=== PATIENT | male | born 1950 | race Caucasian/White ===

== ENCOUNTER 2019-09-14 05:46 | Day surgery (SDC) | payer MEDICARE ==
[~2019-09-14] VITALS: Ht 167.6 cm; Wt 83.1 kg
[~2019-09-14 05:46] MED LIST: ALLERCLEAR10 MG PO; ASPI81CH PO; CLOP75 PO; DUTA.5 PO; FISH OIL PO; GLUCOSAMINE CH1 EAC4 PO; Hair, Skin & N1 EACH PO; LISI5 PO; METO50 PO; NITR.4SL SL; ROSU10TA PO; VITAMIN D31 ML PO
--- NOTE | 2019-09-14 07:05 | NUR ---
Ambulatory in Day Surgery Surgical site prepped with 2% Chlorhexidine cloth wipe. Lungs clear T/O to Auscultation. Patient confirms NPO status and agrees with scheduled surgery. Pre-Op teaching done. Pt verbalizes understanding. Patient States Post-Procedure ride home has been arranged. Patient reports completing Chlorhexadine shower X2 prior to admission to hospital.
--- NOTE | 2019-09-14 08:19 | NUR ---
09/14/19 0819 Yaquelin Kim NO RECONSTITUTION NEEDED
--- NOTE | 2019-09-14 10:07 | NUR ---
ASSUMED CARE AND RECEIVED REPORT FROM OLI LEE RN
--- NOTE | 2019-09-14 10:35 | NUR ---
Patient up to Ambulate independently. Gait steady. Discharge instructions reviewed with patient. Patient verbalizes understanding. Copy given to patient to take home. Patient States Post-Procedure ride home has been arranged. Discharged via wheelchair to private car for ride home. ALL BELONINGS RETURNED TO PATIENT. EMPHASIZED WEIGHT LIFT RESTRICTIONS AND PAIN MANAGEMENT.
== END 2019-09-14 23:02 | disposition home or self-care (01) ==
LOC: ORSCMMR 05:46 → ORD 07:30 → ORSCMMR 23:02
PROVIDERS: Surgery
PROC: 0WUF0JZ Supplement Abdominal Wall with Synthetic Substitute, Open Approach (ICD-10-PCS; principal; 2019-09-14 07:30)
DX: K42.0 Umbilical hernia with obstruction, without gangrene (principal); I10 Essential (primary) hypertension; J45.909 Unspecified asthma, uncomplicated; G47.33 Obstructive sleep apnea (adult) (pediatric); K21.9 Gastro-esophageal reflux disease without esophagitis; E78.5 Hyperlipidemia, unspecified; Z79.899 Other long term (current) drug therapy; Z79.82 Long term (current) use of aspirin
CPT/HCPCS: A9270-GY; C1781; J0690; J1100; J1885; J2370; J2405; J2704; J3010; J7120

== ENCOUNTER 2021-01-01 08:51 | Day surgery (SDC) | payer MEDICARE ==
[~2021-01-01] VITALS: Ht 167.6 cm; Wt 80.9 kg
--- NOTE | 2021-01-01 10:58 | NUR ---
01/01/21 1057 Madeline Bui 4ML NACL INJECTION USED FOR POLYP REMOVAL IN ASCENDING COLON.
== END 2021-01-01 11:28 | disposition home or self-care (01) ==
LOC: ORSCSDS 08:51
PROVIDERS: Student in an Organized Health Care Education/Training Program
PROC: 0DBK8ZX Excision of Ascending Colon, Via Natural or Artificial Opening Endoscopic, Diagnostic (ICD-10-PCS; principal; 2021-01-01 10:15)
PROC: 0DBH8ZX Excision of Cecum, Via Natural or Artificial Opening Endoscopic, Diagnostic (ICD-10-PCS; principal; 2021-01-01 10:15)
PROC: 0DBN8ZX Excision of Sigmoid Colon, Via Natural or Artificial Opening Endoscopic, Diagnostic (ICD-10-PCS; principal; 2021-01-01 10:15)
DX: Z12.11 Encounter for screening for malignant neoplasm of colon (principal); D12.2 Benign neoplasm of ascending colon; D12.0 Benign neoplasm of cecum; D12.5 Benign neoplasm of sigmoid colon; K57.30 Diverticulosis of large intestine without perforation or abscess without bleeding; K64.8 Other hemorrhoids; K64.4 Residual hemorrhoidal skin tags; I10 Essential (primary) hypertension; G47.33 Obstructive sleep apnea (adult) (pediatric); F17.210 Nicotine dependence, cigarettes, uncomplicated; E78.00 Pure hypercholesterolemia, unspecified; Z79.82 Long term (current) use of aspirin; Z79.899 Other long term (current) drug therapy
CPT/HCPCS: 88305; J2704; J7120